=== PATIENT | male | born 1985 | race Caucasian/White ===

== ENCOUNTER 2019-04-01 | Emergency (ER) | payer OTHER ==
[2019-04-01] MEDS ORDERED: NAPROXEN500 MG PO (10:31)
[2019-04-01] MEDS ORDERED: FLEXERIL PO (10:31)
== END 2019-04-01 10:35 | disposition home or self-care (01) | DRG 552 ==
DX: S13.9XXA Sprain of joints and ligaments of unspecified parts of neck, initial encounter (principal); X50.1XXA Overexertion from prolonged static or awkward postures, initial encounter; Y93.89 Activity, other specified